=== PATIENT | female | born 1960 | race African-American/Black ===

== ENCOUNTER 2018-10-14 17:01 | Emergency (ER) | payer MEDICAID ==
--- OUTSIDE RECORDS SUMMARY | 2018-10-14 17:04 | XMS REPORT | Clinical Summary ---
:1960 Author Organization [facility] Address [address] [place] [address] Care Team Providers Name Role Phone Jevon Hernandez MD Primary Care Provider Allergies Active Allergy Reactions Severity Noted Date Comments Sulfamethoxazole-Trimethoprim Rash Medium 02/19/2016 Medications Medication Sig Dispensed Refills Start Date End Date Status metoprolol tartrate Take 100 mg by 0 Active (LOPRESSOR) 100 MG mouth 2 (two) tablet times a day. allopurinol (ZYLOPRIM) Take 100 mg by 0 Active 100 MG tablet mouth daily. simvastatin (ZOCOR) 20 Take 20 mg by 0 Active MG tablet mouth nightly. diltiazem (CardIZEM) 90 Take 90 mg by 0 Active MG tablet mouth daily. ranitidine (ZANTAC) 150 Take 300 mg by 0 Active MG tablet mouth daily. cholecalciferol, Take 5,000 Units 0 Active vitamin D3, (VITAMIN by mouth daily. D3) 5,000 unit capsule multivitamin with Take 1 tablet by 0 Active minerals tablet mouth daily. omega-3 fatty Take 1,000 mg by 0 Active acids-vitamin E (FISH mouth 3 (three) OIL) 1,000 mg capsule times a day. pregabalin (LYRICA) 50 Take 50 mg by 0 Active MG capsule mouth 3 (three) times a day. aspirin (ECOTRIN) 81 MG Take 81 mg by 0 Active enteric coated tablet mouth daily. fluticasone (FLONASE) 1 spray into each 0 Active 50 mcg/actuation nasal nostril daily. spray Active Problems Not on file Family History Medical History Relation Name Comments Hypertension Brother Hypertension Mother Cancer Other uncle Hypertension Sister Relation Name Status Comments Brother Mother Other uncle Alive Sister Social History Tobacco Use Types Packs/Day Years Used Date Never Smoker Alcohol Use Drinks/Week oz/Week Comments No Sex Assigned at Date Recorded Not on file Job Start Date Occupation Industry Not on file Not on file Not on file Travel History Travel Start Travel End No recent travel history available. Last Filed Vital Signs Not on file Plan of Treatment Health Maintenance Due Date Last Done Comments CERVICAL CANCER SCREENING 1981 BREAST CANCER SCREENING 2010 COLON CANCER SCREENING 2010 SHINGLES VACCINES (#1) 2010 INFLUENZA VACCINE 03/10/2018 Implants Implanted Type Area Vice President Residential Solar Sales Device Shelf Model / Identifier Expiration Serial / Date Lot Kit Component Accessory - [id number] Surgical Right: HEMOSPHERE 09/04/2017 [id number] [id number] / Implanted: 02/19/2016 (Quantity not on file) Implants; Arm, n/a / Expanders; Upper [id number] Extenders; Surgical Wires Patch Biosurg Selnt Fibrin Absrbl 9.5x4.8cm Tachosil - [id number] Surgical Right: MAR 06/14/2016 [id number] / Implanted: 02/19/2016 (Quantity not on file) Implants; Arm, BIOSCIENCE n/a / Expanders; Upper [id number] Extenders; Surgical Wires Component Artrl Grft Hero - [id number] Vascular Right: HEMOSPHERE 2016 [id number] / Implanted: 02/19/2016 (Quantity not on file) Graft Arm, n/a / Upper [id number] Results Not on fileafter 10/13/2017 Insurance Payer Benefit Plan / Group Subscriber ID Type Phone Address MEDICAID MEDICAID xxxxxxxxx Medicaid [facility] [facility] [place] [employer] xxxxxxxxx HMO Advance Directives Patient has advance care planning documents on file. For more information, please contact:[place] [address]
--- OUTSIDE RECORDS SUMMARY | 2018-10-14 17:05 | XMS REPORT ---
:1960 Author Organization [employer] Care Team Providers Name Role Phone Marko Hendricks Provider Role Unavailable Allergies No Known Allergies Problems Problem Type Condition Code Onset Dates Condition Status Problem End stage renal disease N18.6 Active Problem Diverticulosis of colon K57.30 Active Problem Allergic rhinitis, seasonal J30.2 Active Problem Peripheral vascular disease I73.9 Active Problem Carpal tunnel syndrome G56.00 Active Problem Hypertension I10 Active Problem Chronic a-fib I48.2 Active Problem Mixed hyperlipidemia E78.2 Active Problem Thrombocytopenia D69.6 Active Problem Gastroesophageal reflux disease K21.9 Active Assessment End stage renal disease N18.6 Active Problem BMI 38.0-38.9,adult Z68.38 Active Problem Systemic lupus erythematosus M32.9 Active Assessment Viral upper respiratory infection J06.9 Active Problem Osteoarthritis, multiple sites M15.9 Active Problem History of cerebrovascular accident Z86.73 Active Problem On anticoagulant therapy Z79.01 Active Medications Medication Code Code Instructions Start End Status Dosage System Date Date atarax NDC 0 25mg Po TID prn Active 1 Zantac 150 [facility] 05376539228 150 MG Orally Active 1 tablet Maximum Once a day at bedtime Strength Diltiazem HCl ND 34119724752 90 MG Orally Active 1 tablet Once a day before meals and at bedtime Pantoprazole ND 67230355157 40 MG Orally Active 1 tablet Sodium Once a day Fluticasone ND 76910468707 50 MCG/ACT January 21, Active 1 spray in Propionate Nasally Once a 2018 each day nostril Claritin ND 11236577510 10 MG Orally Active 1 tablet Once a day Simvastatin ND 34394079149 40 MG Orally Active 1 tablet Once a day in the evening Allopurinol ND 89312279503 100 MG Orally Active 1 tablet Once a day Sensipar [facility] 36555025391 30 MG Orally Active 1 tablet Once a day after a meal with food Simvastatin ND 93963674830 40 MG Orally March Active 1 tablet Once a day 2017 in the evening Renagel [facility] [address]-64 Active not defined Ultram [facility] 22004309267 50 MG Orally Active 1 tablet three times a day,as needed Coreg [facility] 74152066537 3.125 MG Orally Active 1 tab 2 times a day Cardizem CD [facility] 61586585565 180 MG Orally Active 0.5 mg Once a day capsule Flonase [facility] 65681246563 50 MCG/ACT Active 1 spray in Nasally Once a each day nostril Lyrica [facility] 63946654606 50 MG Orally Active 1 capsule Twice a day Carvedilol [facility] 18971052742 3.125 MG Orally October Active 1 tablet 2 times a day 2017 Results No Known Results Summary Purpose [employer] Submission
--- OUTSIDE RECORDS SUMMARY | 2018-10-14 17:05 | XMS REPORT ---
[...] Active Problem Gastroesophageal reflux disease K21.9 Active Problem BMI 38.0-38.9,adult Z68.38 Active Problem Systemic lupus erythematosus M32.9 Active Problem Osteoarthritis, multiple sites M15.9 Active Problem History of cerebrovascular accident Z86.73 Active Problem On anticoagulant therapy Z79.01 Active Medications No Known Medications Results No Known Results Summary Purpose [employer] Submission
--- OUTSIDE RECORDS SUMMARY | 2018-10-14 17:05 | XMS REPORT ---
:1960 Author Organization [employer] Care Team Providers Name Role Phone Marko Hendricks Provider Role Unavailable Allergies, Adverse Reactions, Alerts Substance Reaction Event Type Bactrim DS Info Not Available Drug Allergy Problems Problem Type Condition Code Onset Dates [...] Problem Gastroesophageal reflux disease K21.9 Active Assessment Hypertension I10 Active Assessment End stage renal disease N18.6 Active Assessment Chronic a-fib I48.2 Active Assessment Mixed hyperlipidemia E78.2 Active Problem BMI 38.0-38.9,adult Z68.38 Active Problem Systemic lupus erythematosus M32.9 Active Problem Osteoarthritis, multiple sites M15.9 Active Problem History of cerebrovascular accident Z86.73 Active Problem On anticoagulant therapy Z79.01 Active Medications Medication Code Code Instructions Start End Status Dosage System Date Date Nitroglycerin [facility] 50374456833 0.4 MG Active as Sublingual directed Diltiazem HCl [facility] 62567979898 90 MG Orally Active 1 tablet Once a day before meals and at bedtime Ultram [facility] 68736110471 50 MG Orally Active 1 tablet three times a day,as needed Cardizem CD [facility] 74094635973 180 MG Orally Active 0.5 mg Once a day capsule Sensipar [facility] [address]-61 30 MG Orally Active 1/2 tablet Once a day after a meal with food Lyrica ND 81188567481 50 MG Orally Active 1 capsule Twice a day Fluticasone [facility] 93925981693 50 MCG/ACT January 21, Active 1 spray in Propionate Nasally Once a 2018 each day nostril Claritin [facility] 52501423641 10 MG Orally Active 1 tablet Once a day Carvedilol [facility] 55129887326 3.125 MG Orally October Active 1 tablet 2 times a day 2017 Renagel [facility] [address]-41 Active not defined Allopurinol [facility] 82703112177 100 MG Orally Active 1 tablet Once a day Vitamin D [facility] 37000180366 89395 UNIT Active 1 capsule (Ergocalciferol) Orally Pantoprazole [facility] 99194571466 40 MG Active TAKE 1 BY Sodium MOUTH DAILY Zantac 150 [facility] 03556693022 150 MG Orally Active 1 tablet Maximum Strength Once a day at bedtime Simvastatin [facility] 18140038196 40 MG Orally October Active 1 tablet Once a day 2017 in the evening Fish Oil [facility] 22258839010 1000 MG Orally Active 1 capsule Once a day Letairis [facility] 63580403130 10 MG Orally Active 1 tablet Once a day atarax NDC 0 25mg Po TID prn Active 1 Results No Known Results Summary Purpose [employer]Works Submission
--- OUTSIDE RECORDS SUMMARY | 2018-10-14 17:05 | XMS REPORT ---
:1960 [facility] Team Providers Name Role Phone Marko Hendricks Provider Role Unavailable Allergies, Adverse Reactions, Alerts Substance Reaction Event Type Bactrim DS Info Not Available Drug Allergy Problems Problem Type Condition Code Onset Dates Condition Status Problem BMI 38.0-38.9,adult Z68.38 Active Problem Osteoarthritis, multiple sites M15.9 Active Problem Systemic lupus erythematosus M32.9 Active Problem Chronic a-fib I48.2 Active Assessment Chronic a-fib I48.2 Active Problem Mixed hyperlipidemia E78.2 Active Assessment Acquired hypothyroidism E03.9 Active Problem Acquired hypothyroidism E03.9 Active Problem End stage renal disease N18.6 Active Problem On anticoagulant therapy Z79.01 Active Problem Diverticulosis of colon K57.30 Active Problem Allergic rhinitis, seasonal J30.2 Active Assessment End stage renal disease N18.6 Active Assessment Mixed hyperlipidemia E78.2 Active Assessment Hypertension I10 Active Problem Carpal tunnel syndrome G56.00 Active Problem Peripheral vascular disease I73.9 Active Problem Gastroesophageal reflux disease K21.9 Active Problem Hypertension I10 Active Problem Thrombocytopenia D69.6 Active Problem History of cerebrovascular accident Z86.73 Active Medications Medication Code Code Instructions Start End Status Dosage System Date Date Claritin [facility] 26361497014 10 MG Orally Active 1 tablet Once a day Letairis [facility] 78599896890 10 MG Orally Active 1 tablet Once a day Simvastatin ND 21523645188 40 MG Orally October Active 1 tablet in Once a day 2017 the evening Allopurinol ND 54158050220 100 MG Orally Active 1 tablet Once a day Carvedilol [facility] 19600195165 3.125 MG Orally October Active 1 tablet 2 times a day 2017 Nitroglycerin [facility] 94044778591 0.4 MG Active as directed Sublingual Fish Oil ND 44398415979 1000 MG Orally Active 1 capsule Once a day Liothyronine [facility] 60538907578 5 MCG Orally Apr 22, Active 1 tablet on Sodium Once a day 2018 an empty stomach Vitamin D [facility] 67693530625 79298 UNIT Active 1 capsule (Ergocalciferol) Orally Sensipar [facility] 35564432201 30 MG Orally Active 1/2 tablet Once a day after a meal with food Fluticasone [facility] 90512143506 50 MCG/ACT January 21, Active 1 spray in Propionate Nasally Once a 2017 each day nostril Ultram [facility] 72222936645 50 MG Orally Active 1 tablet three times a day,as needed Lyrica [facility] 12896806852 50 MG Orally Active 1 capsule Twice a day Pantoprazole [facility] 62914784110 40 MG Active TAKE 1 BY Sodium MOUTH DAILY Results No Known Results Summary Purpose [employer]Works Submission
[2018-10-14] MEDS ORDERED: CEFTRIAXONE/SWI 1gm 0 GM/0 ML SYR ONE (19:56)
[2018-10-14] MEDS ORDERED: CEFTRIAXONE/SWI 1gm 1 GM/10 ML SYR ONE (19:58)
[2018-10-14] MEDS ORDERED: ONDANSETRON 4 MG/2 ML VIAL ONE (20:06)
[2018-10-14] MEDS ORDERED: MORPHINE 4 MG/ML SYR ONE (20:06)
[2018-10-14 20:15] LABS: Absolute Lymphocytes (CBC) 1.3 K/uL (0.7-4.9); Absolute Monocytes 0.9 K/uL (0.1-1.3); Absolute Neutrophil 4.2 K/uL (1.8-8.0); Basophils % 0.5 % (0-1.3); Eosinophils % 5.5 % (0-4.4); Hematocrit 35.3 % (36.0-45.0); Lymphocytes % 19.5 % (15.3-44.8); MPV 8.8 fL (7.6-11.3); Monocytes % 13.5 % (3.3-12.3); RBC Red Blood Cell Count 4.31 M/uL (3.86-4.86)
[2018-10-14 20:50] LABS: ALT/SGPT 12 U/L (12-78); AST/SGOT 10 U/L (15-37); Albumin 2.9 g/dL (3.4-5.0); Alkaline Phosphatase 82 U/L (45-117); BUN Blood Urea Nitrogen 44 mg/dL (7-18); Bicarbonate 28 mmol/L (21-32); Bilirubin Direct < 0.1 mg/dL (0-0.2); Bilirubin Total 0.3 mg/dL (0.2-1.0); Glucose Level 88 mg/dL (74-106); Lipase 122 U/L (73-393); Potassium 4.8 mmol/L (3.5-5.1); Protein, Total 6.6 g/dL (6.4-8.2); Sodium Level 141 mmol/L (136-145)
--- NOTE | 2018-10-14 23:18 | ER ---
Nurse's Notes [facility] Name: Rosie Fuentes Age: 57 yrs Sex: Female : 1960 Arrival Date: 10/14/2018 Time: 17:02 Bed 7 Private MD: Marko Hendricks Diagnosis: Diverticulitis of large intestine without perforation or abscess without bleeding Presentation: 10/14 17:32 Presenting complaint: Intermittent lower abdominal pain and nausea x 1 week. Denies hb fever. HD M-W-F, does not make urine anymore. Transition of care: patient was not received from another setting of care. Onset of symptoms was October 06, 2018. Risk Assessment: Do you want to hurt yourself or someone else? Patient reports no desire to harm self or others. Care prior to arrival: None. 17:32 Method Of Arrival: Ambulatory hb 17:32 Acuity: MARIA A 3 hb 21:39 Initial Sepsis Screen: Does the patient meet any 2 criteria? No. Patient's initial jd3 sepsis screen is negative. Does the patient have a suspected source of infection? No. Patient's initial sepsis screen is negative. Historical: - Allergies: 17:34 sulfamethoxazole-trimethoprim; hb 17:34 TRIMETHOPRIM; hb - PMHx: 17:34 CVA; Hypertension; Renal Disease; HD M-W-F; hb - Immunization history:: Adult Immunizations up to date. - Social history:: Smoking status: Patient/guardian denies using tobacco, Patient/guardian denies using alcohol, street drugs, The patient lives with family. - Ebola Screening: : No symptoms or risks identified at this time. - Family history:: not pertinent. Screenin:52 Abuse screen: Denies threats or abuse. Denies injuries from another. Nutritional jl7 screening: No deficits noted. Tuberculosis screening: No symptoms or risk factors identified. Fall Risk None identified. Assessment: 18:52 General: Appears in no apparent distress. uncomfortable, Behavior is calm, cooperative, jl7 appropriate for age. Pain: Complains of pain in left lower quadrant Pain does not radiate. Pain currently is 8 out of 10 on a pain scale. Quality of pain is described as dull, Is intermittent. Neuro: Level of Consciousness is awake, alert, obeys commands, Oriented to person, place, time, situation. Cardiovascular: Patient's skin is warm and dry. Respiratory: Airway is patent Respiratory effort is even, unlabored, Respiratory pattern is regular, symmetrical. GI: Bowel sounds present X 4 quads. Abd is soft X 4 quads Abd is non tender in right upper quadrant and right lower quadrant Abdomen is tender to palpation in left upper quadrant and left lower quadrant. : Reports "I do not make urine any more.". EENT: No signs and/or symptoms were reported regarding the EENT system. Derm: Skin is pink, warm \\T\\ dry. Musculoskeletal: No signs and/or symptoms reported regarding the musculoskeletal system. 19:06 Reassessment: Patient appears in no apparent distress at this time. No changes from jd3 previously documented assessment. Patient and/or family updated on plan of care and expected duration. Pain level reassessed. Patient is alert, oriented x 3, equal unlabored respirations, skin warm/dry/pink. 20:08 Reassessment: Patient appears in no apparent distress at this time. Patient and/or jd3 family updated on plan of care and expected duration. Pain level reassessed. Patient is alert, oriented x 3, equal unlabored respirations, skin warm/dry/pink. 22:36 Reassessment: Patient appears in no apparent distress at this time. Patient and/or jd3 family updated on plan of care and expected duration. Pain level reassessed. Patient is alert, oriented x 3, equal unlabored respirations, skin warm/dry/pink. 23:48 Reassessment: Patient appears in no apparent distress at this time. Patient is alert, aa1 oriented x 3, equal unlabored respirations, skin warm/dry/pink. Discussed d/c \\T\\ f/u instructions with pt; denies questions or concerns at this time. Amb to lobby with steady gait Patient denies pain at this time. Patient states feeling better. Vital Signs: 17:34 BP 118 / 92; Pulse 67; Resp 16; Temp 97.9; Pulse Ox 98% on R/A; Pain 4/10; hb 18:57 BP 140 / 91; Pulse 67; Resp 16 S; Pulse Ox 100% on R/A; jl7 19:06 BP 126 / 80; Pulse 67; Resp 17 S; Pulse Ox 100% on R/A; jd3 20:09 BP 128 / 94; Pulse 70; Resp 16 S; Pulse Ox 100% on R/A; jd3 21:38 BP 110 / 85; Pulse 66; Resp 17 S; Pulse Ox 100% on R/A; jd3 22:36 BP 116 / 80; Pulse 66; Resp 17 S; Pulse Ox 99% on R/A; jd3 ED Course: 17:02 Patient arrived in ED. rg4 17:03 Marko Hendricks MD is Private Physician. rg4 17:34 Triage completed. hb 17:34 Arm band placed on right wrist. hb 17:39 Bib Lynch RN is Primary Nurse. jl7 18:52 Patient has correct armband on for positive identification. Bed in low position. Call jl7 light in reach. Side rails up X 1. Pulse ox on. NIBP on. Warm blanket given. 18:59 Eli Gonzalez MD is Attending Physician. ma2 19:50 Inserted saline lock: 20 gauge in left antecubital area, using aseptic technique. Blood jb5 collected. 19:54 Basic Metabolic Panel Sent. jb5 19:54 Hepatic Function Sent. jb5 19:54 Lipase Sent. jb5 19:54 Creatinine for Radiology Sent. jb5 19:54 CBC with Diff Sent. jb5 21:[address] via wheelchair. nj 22:07 CT completed. Patient tolerated procedure well. Patient moved back from CT. nj 23:16 Abdomen In Process Unspecified. EDMS 23:50 No provider procedures requiring assistance completed. IV discontinued, intact, aa1 bleeding controlled, No redness/swelling at site. Pressure dressing applied. Administered Medications: 20:04 Drug: Rocephin 1 grams Route: IV; Rate: calculated rate; Site: right antecubital; jd3 21:59 Follow up: Response: No adverse reaction; IV Status: Completed infusion jd3 20:04 Drug: morphine 4 mg Route: IVP; Site: right antecubital; jd3 21:00 Follow up: Response: No adverse reaction; Pain is decreased jd3 20:04 Drug: Zofran 4 mg Route: IVP; Site: left antecubital; jd3 21:00 Follow up: Response: No adverse reaction jd3 Outcome: 23:18 Discharge ordered by . ma2 23:50 Discharged to home ambulatory, with friend. aa1 23:50 Condition: good 23:50 Discharge instructions given to patient, friend, Instructed on discharge instructions, follow up and referral plans. medication usage, Demonstrated understanding of instructions, follow-up care, medications, Prescriptions given X 3. 23:51 Patient left the ED. aa1 Signatures: Dispatcher [employer] EDMS Arabella Rogers RN RN aa1 Vivi Hernandez RN RN Isabela Colon 4 Ramirez Daley Jennifer jb5 Bib Lynch RN RN jl7 Leobardo Gutierrez RN RN jd3 Eli Gonzalez MD MD ma2 Corrections: (The following items were deleted from the chart) 22:00 21:59 Response: No adverse reaction; Pain is decreased garrett jd3
--- NOTE | 2018-10-14 23:19 | EDPHYS ---
Physician Documentation [facility] Name: Rosie Fuentes Age: 57 yrs Sex: Female : 1960 Arrival Date: 10/14/2018 Time: 17:02 Bed 7 Private MD: Marko Hendricks ED Physician Eli Gonzalez HPI: 10/14 21:10 This 57 yrs old Black Female presents to ER via Ambulatory with complaints of Abdominal ma2 Pain. 21:10 The patient presents with abdominal pain. Onset: The symptoms/episode began/occurred ma2 gradually, 3 day(s) ago. Associated signs and symptoms: Pertinent negatives: nausea, vomiting, and diarrhea, nausea and vomiting, anorexia, blood in stools, chest pain, dysuria, headache, shortness of breath. The symptoms are described as burning. Severity of pain: At its worst the pain was moderate in the emergency department the pain is unchanged. The patient has experienced similar episodes in the past. Historical: - Allergies: 17:34 sulfamethoxazole-trimethoprim; hb 17:34 TRIMETHOPRIM; hb - PMHx: 17:34 CVA; Hypertension; Renal Disease; HD M-W-F; hb - Immunization history:: Adult Immunizations up to date. - Social history:: Smoking status: Patient/guardian denies using tobacco, Patient/guardian denies using alcohol, street drugs, The patient lives with family. - Ebola Screening: : No symptoms or risks identified at this time. - Family history:: not pertinent. ROS: 21:10 Constitutional: Negative for fever, chills, and weight loss, Cardiovascular: Negative ma2 for chest pain, palpitations, and edema, Respiratory: Negative for shortness of breath, cough, wheezing, and pleuritic chest pain. 21:10 Abdomen/GI: Positive for abdominal pain, Negative for nausea and vomiting, vomiting, abdominal cramps, abdominal distension, anorexia, rectal bleeding, bowel incontinence. 21:10 All other systems are negative. Exam: 21:10 Constitutional: This is a well developed, well nourished patient who is awake, alert, ma2 and in no acute distress. Chest/axilla: Normal chest wall appearance and motion. Nontender with no deformity. No lesions are appreciated. Cardiovascular: Regular rate and rhythm with a normal S1 and S2. No gallops, murmurs, or rubs. Normal PMI, no JVD. No pulse deficits. Respiratory: Lungs have equal breath sounds bilaterally, clear to auscultation and percussion. No rales, rhonchi or wheezes noted. No increased work of breathing, no retractions or nasal flaring. Abdomen/GI: Soft, non-tender, with normal bowel sounds. No distension or tympany. No guarding or rebound. No evidence of tenderness throughout. MS/ Extremity: Pulses equal, no cyanosis. Neurovascular intact. Full, normal range of motion. Neuro: Awake and alert, GCS 15, oriented to person, place, time, and situation. Cranial nerves II-XII grossly intact. Motor strength 5/5 in all extremities. Sensory grossly intact. Cerebellar exam normal. Normal gait. Vital Signs: 17:34 BP 118 / 92; Pulse 67; Resp 16; Temp 97.9; Pulse Ox 98% on R/A; Pain 4/10; hb 18:57 BP 140 / 91; Pulse 67; Resp 16 S; Pulse Ox 100% on R/A; jl7 19:06 BP 126 / 80; Pulse 67; Resp 17 S; Pulse Ox 100% on R/A; jd3 20:09 BP 128 / 94; Pulse 70; Resp 16 S; Pulse Ox 100% on R/A; jd3 21:38 BP 110 / 85; Pulse 66; Resp 17 S; Pulse Ox 100% on R/A; jd3 22:36 BP 116 / 80; Pulse 66; Resp 17 S; Pulse Ox 99% on R/A; jd3 MDM: 19:00 Patient medically screened. ma2 21:10 Differential diagnosis: diverticulitis, gastritis, gastroesophageal reflux disease, ma2 pancreatitis. 23:16 Data reviewed: vital signs, nurses notes. Counseling: I had a detailed discussion with ma2 the patient and/or guardian regarding: the historical points, exam findings, and any diagnostic results supporting the discharge/admit diagnosis, the presence of at least one elevated blood pressure reading (>120/80) during this emergency department visit, the need for outpatient follow up. Response to treatment: the patient's symptoms have markedly improved after treatment. ED course: symptoms improved ct showing uncomplicated diverticulitis vs stable no sirs,will pursue outpatient antibiotics. 10/14 20:15 Order name: CBC with Automated Diff; Complete Time: 21:52 EDMS 03/07 20:54 Order name: Basic Metabolic Panel; Complete Time: 21:52 EDMS 10/14 20:54 Order name: Liver (Hepatic) Function; Complete Time: 21:52 EDMS 10/14 20:54 Order name: Lipase; Complete Time: 21:52 EDMS 10/14 20:54 Order name: Creatinine (Radiology Only); Complete Time: 21:52 EDMS 10/14 23:44 Order name: Basic Metabolic Panel EDMS 10/14 23:44 Order name: Liver (Hepatic) Function EDMS 10/14 23:44 Order name: Lipase EDMS 10/14 23:44 Order name: Creatinine (Radiology Only) EDMS 10/14 19:38 Order name: IV Saline Lock; Complete Time: 19:54 ma2 10/14 19:38 Order name: Labs collected and sent; Complete Time: 19:54 ms2 10/14 23:14 Order name: Abdomen EDMS Administered Medications: 20:04 Drug: Rocephin 1 grams Route: IV; Rate: calculated rate; Site: right antecubital; jd3 21:59 Follow up: Response: No adverse reaction; IV Status: Completed infusion jd3 20:04 Drug: morphine 4 mg Route: IVP; Site: right antecubital; jd3 21:00 Follow up: Response: No adverse reaction; Pain is decreased jd3 20:04 Drug: Zofran 4 mg Route: IVP; Site: left antecubital; jd3 21:00 Follow up: Response: No adverse reaction jd3 Disposition: 10/14/18 23:18 Discharged to Home. Impression: Diverticulitis of large intestine without perforation or abscess without bleeding. - Condition is Stable. - Discharge Instructions: Diverticulitis, [id number], Virtual Colonoscopy. - Prescriptions for Flagyl 500 mg Oral Tablet - take 4 tablet by ORAL route one time for 1 day; 4 tablet. Tylenol- Codeine #3 300-30 mg Oral Tablet - take 2 tablet by ORAL route every 6 hours As needed; 30 tablet. Cipro 500 mg Oral Tablet - take 1 tablet by ORAL route every 12 hours for 7 days; 14 tablet. - Medication Reconciliation Form, Thank You Letter, Antibiotic Education, Prescription Opioid Use form. - Follow up: Private Physician; When: Tomorrow; Reason: Continuance of care. Signatures: Dispatcher [employer] EDRI Arabella Rogers RN RN aa1 Vivi Hernandez RN RN Leobardo Gutierrez RN RN jd3 Eli Gonzalez MD MD ma2 Corrections: (The following items were deleted from the chart) 19:56 19:38 Urine Dipstick-Ancillary ordered. wei tucker 23:43 19:39 Abdomen Pelvis Wo Con+CT.RAD.BRZ ordered. EDRI EDRI 23:51 23:18 10/14/2018 23:18 Discharged to Home. Impression: Diverticulitis of large aa1 intestine without perforation or abscess without bleeding. Condition is Stable. Forms are Medication Reconciliation Form, Thank You Letter, Antibiotic Education, Prescription Opioid Use. Follow up: Private Physician; When: Tomorrow; Reason: Continuance of care. ma2
[2018-10-14 23:57] VITALS: TEMP 97.9
[2018-10-15 00:33] VITALS: BP 116/80; O2SAT 99
--- NOTE | 2018-10-15 12:15 | RAD REPORT ---
EXAM DESCRIPTION: CT Abdomen and Pelvis Without Intravenous Contrast CLINICAL HISTORY: The patient is 57 years old and is Female; LOWER ABDOMEN PAIN TECHNIQUE: Axial computed tomography images of the abdomen and pelvis without intravenous contrast. Sagittal and coronal reformatted images were created and reviewed. This CT exam was performed usi ng one or more of the following dose reduction techniques: automated exposure control, adjustment o f the mA and/or kV according to patient size, and/or use of iterative reconstruction technique. COMPARISON: None. FINDINGS: LUNG BASES: Lung bases are clear. HEART: Mild cardiomegaly. No pericardial effusion. ABDOMEN: LIVER: Unremarkable. GALLBLADDER AND BILE DUCTS: Unremarkable. No calcified stones. No ductal dilation. PANCREAS: Unremarkable. No ductal dilation. SPLEEN: Unremarkable. No splenomegaly. ADRENALS: Unremarkable. No mass. KIDNEYS AND URETERS: Advanced bilateral renal atrophy with multiple bilateral renal cysts measurin g up to 3 cm on the right. 8 mm hypodense cystic lesion is seen in the posterior left kidney. No obstructing stones. No hydronephrosis. STOMACH AND BOWEL: Moderate diverticulosis of the sigmoid colon with associated peridiverticular s tranding and sigmoid wall thickening. No obstruction. PELVIS: APPENDIX: No findings to suggest acute appendicitis. BLADDER: Unremarkable. No stones. REPRODUCTIVE: Unremarkable as visualized. ABDOMEN and PELVIS: INTRAPERITONEAL SPACE: Unremarkable. No free air. No significant fluid collection. BONES/JOINTS: Diffuse sclerosis of the skeleton. No acute fracture. No dislocation. SOFT TISSUES: Gluteal injection granuloma bilaterally VASCULATURE: Prior endovascular stenting of the left femoral vein. No abdominal aortic aneurysm. LYMPH NODES: Unremarkable. No enlarged lymph nodes. TUBES, LINES AND DEVICES: Tunneled left femoral hemodialysis catheter is present. IMPRESSION: 1. Acute sigmoid diverticulitis with wall thickening and peridiverticular stranding. N o perforation or abscess formation. Obstructive lesion cannot be entirely excluded. Colonoscopy and d irect visualization is recommended when clinically feasible. 2. Advanced bilateral renal atrophy with acquired polycystic kidney disease. 3. Cardiomegaly. 4. Prior endovascular stenting of the left femoral vein. 5. Tunneled left femoral hemodialysis catheter is present. 6. Diffuse sclerosis of the skeletal most suggestive of renal osteodystrophy. Electronically signed by: Washington Bryan DO 10/14/2018 10:26 PM JOB SUPERINTENDENT Due to temporary technical issues with the PACS/Fluency reporting system, reports are being signed by the in house radiologist as a courtesy to ensure prompt reporting. The interpreting radiologist is f ully responsible for the content of the report.
== END 2018-10-14 23:51 | disposition home or self-care (01) ==
LOC: ER 17:01
DX: K57.32 Diverticulitis of large intestine without perforation or abscess without bleeding (principal); I10 Essential (primary) hypertension; Z88.2 Allergy status to sulfonamides; Z88.8 Allergy status to other drugs, medicaments and biological substances
CPT/HCPCS: 36415; 74176; 80048; 80076; 83690; 85025; 99284; J0696; J2405; Q9967